=== PATIENT | female | born 1965 | race Caucasian/White ===

== ENCOUNTER 2020-05-11 10:00 | Emergency (ER) | payer MEDICAID, OTHER ==
[2020-05-11] MEDS ORDERED: Balanced Salt Solution Ophth Irrig 30 ML Bottle EYELF ONE (10:08)
--- NOTE | 2020-05-11 10:08 | EDM.PDOC ---
ED HPI GENERAL MEDICAL PROBLEM - General Chief Complaint: ENT Problem Stated Complaint: L EYE PAIN Time Seen by Provider: 05/11/20 10:00 Source of Information: Reports: Patient, Old Records ([facility] chart/EMR) History Limitations: Reports: No Limitations - History of Present Illness INITIAL COMMENTS - FREE TEXT/NARRATIVE: The patient was brought to the emergency room via private automobile by her for evaluation of 03/28 left eye pain likely secondary to her self- concept injury. Note that the patient tends to use her contacts only over the weekends, however uses her contacts for the entire 3 days and does not take them out until she goes back to work on Tuesday. She denies any known injury or exposure to infection. The patient also denies any recent fever, cough, wheezing, dyspnea, etc.. The patient did take 800 mg of ibuprofen prior to arrival with no improvement of her symptoms. No recent history of abdominal pain, heartburn, nausea, diarrhea, melena, gross hematochezia, or any food intolerance, including fatty foods, etc.. She has been wearing her glasses since onset of the above symptoms yesterday. Onset: Gradual Duration: Constant, Getting Worse Location: Reports: Other (Left eye). Denies: Head, Face, Neck, Chest, Abdomen, Back, Upper Extremity, Left, Upper Extremity, Right, Radiates to Quality: Reports: Burning, Throbbing Severity: Mild Improves with: Reports: None Worsens with: Reports: None Context: Reports: Other (As above). 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 Gastrointestinal History: Reports: Diverticulosis, Other (See Below) Other Gastrointestinal History: Diverticulosis in the sigmoid region by CT scan. 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: Musculoskeletal History: Reports: Arthritis, Back Pain, Chronic, Osteoarthritis - Past Surgical History Female Surgical History: Reports: Section - Past Imaging History Past Imaging History: Reports: CAT Scan (Abdomen and pelvis on 10/06/2014), Mammogram (Last on 07/10/2019) Social & Family History - Tobacco Use Smoking Status *Q: Never Smoker Tobacco Use Within Last Twelve Months: No Used Tobacco, but Quit: No Smoking Cessation Information Provided To Patient: No Second Hand Smoke Exposure: Yes Source of Second Hand Smoke Exposure: smokes Second Hand Smoke Education Provided: Yes - Caffeine Use Caffeine Use: Reports: Soda - Alcohol Use Alcohol Use History: No Days Per Week of Alcohol Use: 0 Number of Drinks Per Day: 0 Number of Drinks Per Day Comment: No previous DWIs, problems with alcohol abuse, etc. Total Drinks Per Week: 0 Alcohol Use in Last Twelve Months: No - Recreational Drug Use Recreational Drug Use: Yes Drug Use in Last 12 Months: Yes Recreational Drug Type: Reports: Marijuana/Hashish (Weekly use since age 20). D enies: Amphetamines (Speed), Cocaine, Heroin, Inhalants (Glues, Solvents, Aerosols), LSD (Acid), Methamphetamine, Morphine, Oxycodone - Living Situation & Occupation Living situation: Reports: Occupation: Employed ([employer]) ED ROS GENERAL - Review of Systems Review Of Systems: Comprehensive ROS is negative, except as noted in HPI. ED EXAM GENERAL W FULL EYE - Physical Exam Exam: See Below Exam Limited By: No Limitations General Appearance: Alert, WD/WN, No Apparent Distress Eye Exam: Left Eye: Conjunctival Injection (Severe), Corneal Abrasion (5 mm lateral mid corneal abrasion), Periorbital Changes (Moderate periorbital and upper eyelid swelling), Bilateral Eye: EOMI, Normal Fundi (No nystagmus; the patient is wearing glasses), PERRL Visual Acuity (R) 20/: 25 Visual Acuity (L) 20/: 25 With Correction: Yes Eyelids: Left: Edema (Moderate), Erythema (Mild), Lid Everted for Exam (Normal) Conjunctiva & Sclera: Left: Discharge (Mild clear), Injected (Moderate to severe) Cornea Exam: Left: Corneal Abrasion (As above), Examined with Flourescein Extraocular Movements: Bilateral: Intact Pupils: Normal Accommodation Pupillary Size: Bilateral: 5 mm Pupillary Reaction: Bilateral: Brisk Anterior Chamber: Bilateral: Normal Appearance Posterior Chamber: Bilateral: Normal Funduscopic Ears: Normal External Exam, Normal Canal, Hearing Grossly Normal, Normal TMs Nose: Normal Inspection, Normal Mucosa, No Blood Throat/Mouth: Normal Inspection, Normal Lips, Normal Teeth (Multiple missing teeth), Normal Gums, Normal Oropharynx, Normal Voice, No Airway Compromise. No: Dysphagia, Inflammation Head: Atraumatic, Normocephalic. No: Facial Swelling, Facial Tenderness, Sinus Tenderness Neck: Normal Inspection, Supple, Non-Tender, Full Range of Motion. No: Lymphadenopathy (L), Lymphadenopathy (R), Thyromegaly Respiratory/Chest: No Respiratory Distress, Lungs Clear, Normal Breath Sounds, No Accessory Muscle Use, Chest Non-Tender. No: Pleural Rub, Retractions Cardiovascular: Normal Peripheral Pulses, Regular Rate, Rhythm, No Edema, No Gallop, No JVD, No Murmur, No Rub. No: Gallop/S3, Gallop/S4, Friction Rub GI/Abdominal: Normal Bowel Sounds, Soft, Non-Tender, No Organomegaly, No Distention, No Abnormal Bruit, No Mass, Other (Obese). No: Guarding (Female) Exam: Deferred Rectal (Female) Exam: Deferred Back Exam: Normal Inspection, Full Range of Motion. No: CVA Tenderness (L), CVA Tenderness (R), Muscle Spasm Extremities: Normal Inspection, Normal Range of Motion, Non-Tender, No Pedal Edema, Normal Capillary Refill. No: Tena's Sign Neurological: Alert, Oriented, CN II-XII Intact, Normal Cognition, Normal Gait, No Motor/Sensory Deficits Psychiatric: Normal Affect, Normal Mood Skin Exam: Warm, Dry, Intact, Normal Color, No Rash, Stud(s) (Multiple auricles bilaterally), Tattoo(s) (Multiple). No: Diaphoretic, Wound/Incision Lymphatic: No Adenopathy Course - Vital Signs Last Recorded V/S: Last Vital Signs Temp 36.4 C 05/11/20 10:00 Pulse 62 05/11/20 10:00 Resp 16 05/11/20 10:00 BP 138/85 05/11/20 10:00 Pulse Ox 100 05/11/20 10:00 Vital Signs - 24 hr 05/11/20 10:00 Temperature [ 36.4 C Temporal] Pulse, 62 Peripheral [ Pulse Oximetry] Respiratory 16 Rate Blood Pressure 138/85 [Right Arm] O2 Sat by Pulse 100 Oximetry - Orders/Labs/Meds Orders: Active Orders 24 hr Category Date Time Status Obtain Past Medical Record [OM.PC] Routine Oth 05/11/20 10:08 Active Labs: None Meds: Medications Discontinued Medications Generic Name Dose Route Start Last Admin Trade Name Freq PRN Reason Stop Dose Admin Balanced Salt Solution 30 ml 05/11/20 10:08 05/11/20 10:14 Eye Stream Eye Rinse EYELF 05/11/20 10:09 30 ml ONETIME ONE Administration Ceftriaxone Sodium 1 gm 05/11/20 10:33 05/11/20 10:48 Rocephin IM 05/11/20 10:34 1 gm ONETIME ONE Administration Lidocaine HCl 2.1 ml 05/11/20 10:33 05/11/20 10:49 Xylocaine-Mpf 1% INJECT 05/11/20 10:34 2.1 ml ONETIME ONE Administration Tetracaine HCl 1 ml 05/11/20 10:09 05/11/20 10:13 Tetracaine 0.5% Steri-Unit Alisson EYELF 05/11/20 10:10 2 drop ASDIRECTED ONE Administration - Radiology Interpretation Free Text/Narrative:: None Departure - Departure Time of Disposition: 11:00 Disposition: Home, Self-Care 01 Condition: Good Clinical Impression: Tobacco abuse counseling, Illicit drug use, continuous Corneal abrasion, left Qualifiers: Encounter type: initial encounter Qualified Code(s): S05.02XA - Injury of conjunctiva and corneal abrasion without foreign body, left eye, initial encounter - Discharge Information *PRESCRIPTION DRUG MONITORING PROGRAM REVIEWED*: Not Applicable *COPY OF PRESCRIPTION DRUG MONITORING REPORT IN PATIENT JOSSELINE: Not Applicable Prescriptions: Polymyxin B/Trimethoprim [PolyTrim Ophth Soln] 2 drop EYELF QID #1 bottle Instructions: Health Risks of Smoking, Ceftriaxone injection, Corneal Abrasion, [id number], Steps to Quit Smoking Referrals: PCP,Unknown [Primary Care Provider] - Forms: ED Department Discharge, ED Return to Work/School Form Additional Instructions: 1. Follow-up with your eye doctor tomorrow as discussed 2. Polytrim eyedrops 2 drops in the affected eye 4 times a day with every 2 hours as needed for at least 5 days AND until 48 hours after complete resolution of symptoms as directed. You may use additional OTC artificial tears as needed as per label instructions. 3. Tylenol 650 mg by mouth every 4 hours and/or OTC ibuprofen 2-3 tabs by mouth every 6 hours with food as directed./needed. You may stagger these medications for 48-72 hours only, which essentially means that you are receiving a pain medication about every 2 hours. 4. Work excuse- See Form 5. Continue to use your glasses until symptoms resolve 6. Remove your contacts on a nightly basis as discussed 7. Stop all tobacco exposure CAMIME as directed with counselling, information, etc. given at discharge. 8. Stop marijuana use CAMMIE as discussed 9. Immediately after this visit verify that your cellular telephone's voicemail has been activated and is empty. Also verify that your home telephone's answering machine is operating properly and has space to receive messages. Note that it is sometimes necessary for us to be able to contact you at a later date to discuss your medical care. 10. Please remember that we are ALWAYS here for you and want to answer any questions you may have. Feel free to call the hospital any time and we call you back CAMMIE. 11. Ice packs to the left eye as needed Sepsis Event Note (ED) - Evaluation Sepsis Screening Result: No Definite Risk - Focused Exam Vital Signs: Vital Signs Temp Pulse Resp BP Pulse Ox 05/11/20 10:00 36.4 C 62 16 138/85 100 - Problem List & Annotations (1) Corneal abrasion, left SNOMED Code(s): 07650556754630485 Code(s): S05.02XA - INJ CONJUNCTIVA AND CORNEAL ABRASION W/O FB, LEFT EYE, INIT Status: Acute Priority: High Onset Date: ~05/09/20 Annotation/Comment:: Moderate corneal abrasion secondary to her contact lens with no known exposure to infection or significant acute injury. Secondary to significant finding as above close follow-up by her personal banking officer tomorrow as per discharge instructions. Work excuse was provided with her personal banking officer to release her back to work. Secondary to some periorbital findings IM Rocephin was given in the emergency room with additional emergency room prescription for Polytrim ophthalmic solution. Proper use of soft contact lenses, etc. was extensively discussed. Qualifiers: Encounter type: initial encounter Qualified Code(s): S05.02XA - Injury of conjunctiva and corneal abrasion without foreign body, left eye, initial encounter (2) Tobacco abuse counseling SNOMED Code(s): 687316549, 128123152, 621049642 Code(s): Z71.6 - TOBACCO ABUSE COUNSELING Status: Chronic Priority: Medium Annotation/Comment:: Tobacco cessation was strongly encouraged with information provided at discharge. (3) Illicit drug use, continuous SNOMED Code(s): 711441260 Code(s): F19.90 - OTHER PSYCHOACTIVE SUBSTANCE USE, UNSPECIFIED, UNCOMPLICATED Status: Chronic Priority: Medium Annotation/Comment:: Indications for medical marijuana use was extensively discussed with recreational marijuana use to be discontinued CAMMIE. - Problem List Review Problem List Initiated/Reviewed/Updated: Yes - My Orders Last 24 Hours: My Active Orders 05/11/20 10:08 Obtain Past Medical Record [OM.PC] Routine - Assessment/Plan Last 24 Hours: My Active Orders 05/11/20 10:08 Obtain Past Medical Record [OM.PC] Routine Assessment:: As above Plan: As above. Extensive precautions were given to the patient, who is in agreement with the treatment plan. See Patient Instructions for further treatment and plan.
[2020-05-11] MEDS ORDERED: Tetracaine HCl/PF 0.5% 4 ML Bottle EYELF ONE (10:09)
[2020-05-11] MEDS ORDERED: cefTRIAXone 1 GM Vial IM ONE (10:33)
== END 2020-05-11 11:15 | disposition home or self-care (01) ==
LOC: LL.ED 10:00
DX: S05.02XA Injury of conjunctiva and corneal abrasion without foreign body, left eye, initial encounter (principal); Z71.6 Tobacco abuse counseling; F19.90 Other psychoactive substance use, unspecified, uncomplicated; X58.XXXA Exposure to other specified factors, initial encounter
CPT/HCPCS: 96372; 99283; J0696; J2001